=== PATIENT | female | born 1990 | race American Indian/Alaskan Native ===

== ENCOUNTER 2017-05-14 17:00 | Inpatient (IN) | payer OTHER ==
[2017-05-15 08:21] VITALS: BMI 26.7
[2017-05-15] MEDS: Lactated Ringer's 1,000 ML IV SCH ×2 (08:45→09:52)
[2017-05-15 09:16] LABS: BASO % 0.3 % (0.0-2.0); EOS % 0.4 % (0.0-4.0); HEMATOCRIT 29.4 % (34.0-47.0); LYMPH # 1.4 K/uL (1.0-4.3); LYMPH % 16.6 % (20.0-40.0); MEAN CELL VOLUME 83.1 fl (81.0-99.0); MEAN CORPUSCULAR HEMOGLOBIN 26.9 pg (27.0-31.0); MEAN CORPUSCULAR HGB CONC 32.4 g/dL (33.0-37.0); MEAN PLATELET VOLUME 6.7 fl (7.2-11.7); MONO # 0.7 K/uL (0.0-0.8); MONO % 8.2 % (0.0-10.0); NEUT # 6.3 K/uL (1.8-7.0); NEUT % 74.5 % (50.0-75.0); RED CELL DISTRIBUTION WIDTH 14.9 % (11.5-14.5); WHITE BLOOD COUNT 8.5 K/uL (4.8-10.8)
[2017-05-15] MEDS ORDERED: Lactated Ringer's 1,000 ML IV SCH (10:00)
[2017-05-15] MEDS ORDERED: ceFAZolin 1 GM in Sodium Chloride 0.9% 100 ML IVPB ONE (10:00)
[2017-05-15] MEDS ORDERED: Oxytocin 30 units/LR 500ML 30 U/500 ML BAG IV ONE ×2 (10:45→11:35)
--- NOTE | 2017-05-15 10:50 | OBHP ---
Datetime: 05/15/2017 10:48 IP Adm Impression: Term, intrauterine ; No Active Labor; Intact Membranes IP Admit Plan: Initiate Section protocol Admit Comment, IP Provider: IUP at 38+weeks previous C/S x 1 declined sent by [facility] for C /S. No CTX; no VB; +FM PMH: denies PSH: C/S NKA PSoHx: denies smoking ETOH drugs POBGYNH: C/S x 1 fully dilated ; elevated BP A: IUP at 38+; previous C/S x 1/declined ; polyhydramnios PLAN: Admit to L_D Prep for C/S Informed consent obtained Pelvic Type - PN: Adequate Extremities - PN: Normal Abdomen - PN: Normal Back - PN: Normal Breast - PN: Not Done Lungs - PN: Normal Heart - PN: Normal Thyroid - PN: Normal Neurologic - PN: Normal HEENT - PN: Normal General - PN: Normal FHR - Baseline A Provider: 120 Membranes, Provider: Intact Pool Provider: Negative IP Hx Assessment: The History has been Reviewed and is Current EGA AdmitDate IP: 38.2 IP Chief Complaint: Scheduled Section NICHD Variability Prov Fetus A: Moderate 6-25bpm NICHD Accel Fetus A IP Provider: [id number] NICHD Decel Fetus A IP Provider: None Genitourinary Exam: Normal DTRs - PN: Normal Datetime: 05/15/2017 10:32 Presentation-Admit: Vertex Comments, ACOG Physical Exam: ROS: HEENT: no CHOWDARY; no visual dist RESP: no SOB/cough CV: No CP/no palpitatoins GI: no N/V/D : no F/U/D MS: No joint pain FHR Category Provider Fetus A: Category I
[2017-05-15] MEDS ORDERED: Atropine 0.4 mg/ml Inj (1 mL) ONE (11:03)
--- NOTE | 2017-05-15 12:17 | OBDS ---
DELIVERY PERSONNEL Delivery Doctor: Charbel Contreras DO Real Estate Acquisition Analyst: Nidhi Anesthesiologist: Dr. Cameron MATERNAL INFORMATION Delivery Anesthesia: Spinal Medications in Delivery: Ancef 1 gm/Pitocin 30 units in 500 mls Estimated Blood Loss (ml): 800 Placenta Cultured: No Maternal Complications: None Provider Comments: Pre Op Dx: IUP at 38+w Previous C/S x 1 declines polyhydramnios PostOp Dx: same Procedure: Repeat LTCS via previous surgical scar Surgeon: Dr Contreras Asst: Dr Chasidy Michel Anesth: Dr Cameron Anesth: spinal Findings: Live male delivered from [facility] pres one loose nuchal cord reduced clear AF Placenta delivreed intact manually Ovaries and tubes WNL grossly She remained stable All equipment, sponges and needles accounted for EBL 800cc LABOR SUMMARY EDC: 05/27/2017 00:00 No. Babies in Womb: 1 Attempted: No Labor Anesthesia: Epidural LABOR INFORMATION Reason for Induction: Not Applicable Group B Beta Strep: Negative Antibiotics # of Doses: 1 Antibiotics Time of Last Dose: 1105 Steroids Given: None Reason Steroids Not Administered: Not Applicable MEMBRANES Membranes Rupture Method: Artificial Rupture of Membranes: 05/15/2017 11:34 Length of Rupture (hrs): 0.00 Amniotic Fluid Color: Clear Amniotic Fluid Amount: Small Amniotic Fluid Odor: Normal STAGES OF LABOR Stage 3 hrs: 0 Stage 3 min: 1 CSECTION DELIVERY Primary Indication: Other Other Primary Indication: Repeat Other Secondary Indication: Polyhydramnios CSection Urgency: Non Elective CSection Incidence: Repeat Labor: No Labor Elective: Nonelective Uterine Closure: Single-layer closure BABY A INFORMATION Infant Delivery Date/Time: 05/15/2017 11:34 Born in Route : No : N/A Forceps: N/A Vacuum Extraction: N/A Shoulder Dystocia : No SHOULDER DYSTOCIA BABY A Delivery Date/Time: 05/15/2017 11:34 PRESENTATION/POSITION BABY A Presentation: Cephalic Cephalic Presentation: Vertex Breech Presentation: N/A PLACENTA INFORMATION BABY A Placenta Delivery Time : 05/15/2017 11:35 Placenta Method of Delivery: Manual Removal Placenta Status: Delivered SCORES BABY A Heart Rate 1 min: >100 bpm Resp Effort 1 min: Good Cry Reflex Irritability 1 min: Cough or Sneeze or Pulls Away Muscle Tone 1 min: Active Motion Color 1 min: Body [place], Extremities Blue Resuscitation Effort 1 min: N/A SCORE 1 MIN: 9 Heart Rate 5 min: >100 bpm Resp Effort 5 min: Good Cry Reflex Irritability 5 min: Cough or Sneeze or Pulls Away Muscle Tone 5 min: Active Motion Color 5 min: Body [place], Extremities Blue Resuscitation Effort 5 min: N/A SCORE 5 MIN: 9 INFORMATION BABY A Gestational Age at Delivery: 38.2 Gestational Status: Term Outcome : Liveborn Condition : Stable Infant Sex: Male IDENTIFICATION/MEDS BABY A ID Band Number: [id number] ID Band Location: Left Leg; Left Arm WEIGHT/LENGTH BABY A Birthweight (gms): 3610 Infant Weight (lb): 7 Infant Weight (oz): 15 CORD INFORMATION BABY A No. Cord Vessels: 3 Nuchal Cord : Around Neck x1, Loose Nuchal Cord Other: N/A True Knot: N/A Cord pH Baby Arterial: N/A Infant Cord pH Baby Venous: N/A Cord Blood Taken: Yes Banking/Donate Info: N/A Suction: Mouth; Nose ASSESSMENT BABY A Complications: None Physical Findings at Delivery: Within Normal Limits Infant Respirations: Appears Normal Machine Binding Folder/ALS Called : No Infant Care By: Francis Transferred To: [facility]
[2017-05-15] MEDS: Oxycodone/Acetaminophen 5/325 mg Tab PO PRN ×2 (15:41→20:35)
[2017-05-15] MEDS ORDERED: Oxycodone/Acetaminophen 5/325 mg Tab PO PRN (16:39)
[2017-05-15] MEDS: Simethicone 80 mg Chewtab PO SCH ×2 (16:45→23:27)
[2017-05-16] MEDS: Oxycodone/Acetaminophen 5/325 mg Tab PO PRN ×4 (00:30→19:55)
[2017-05-16] MEDS: Simethicone 80 mg Chewtab PO SCH ×4 (07:25→21:26)
[2017-05-16 07:52] LABS: HEMATOCRIT 27.3 % (34.0-47.0); MEAN CELL VOLUME 82.7 fl (81.0-99.0); MEAN CORPUSCULAR HEMOGLOBIN 27.2 pg (27.0-31.0); MEAN CORPUSCULAR HGB CONC 32.9 g/dL (33.0-37.0); RED CELL DISTRIBUTION WIDTH 15.1 % (11.5-14.5); WHITE BLOOD COUNT 12.2 K/uL (4.8-10.8)
--- NOTE | 2017-05-16 11:40 | OBPPN ---
Datetime: 05/16/2017 11:36 PP Pain Prov: Within normal limits PP Nausea Prov: Denies PP Flatus Prov: Yes PP Breasts Prov: Normal PP Heart Prov: Normal PP Lungs Prov: Normal PP Abdomen/Uterus Prov: Normal PP Lochia Prov: Normal PP Vulva/Perineum Prov: Normal PP CVA Tenderness Prov: Normal PP Extremities Prov: Normal PP Comments Phys Exam Prov: Fundus firm under umbilicus Incision clean/dry/intact PP Impression Prov: Normal progression PP Plan Prov: Continue present management PP Progress Note Prov: Patient denies CP, noSOB, no N/V, tolerating PO diet, ambulating/voiding well , mild lochia, abominal pain tolerable with meds, +flatus A/P POD #1 1. Continue reg diet 2. Percocet/motrin prn pain 3. Encourage ambulation/ 4. Colace/dulcolax prn constipation IP PP Procedures: None Vital Signs Provider PP: Reviewed
[2017-05-17] MEDS: Simethicone 80 mg Chewtab PO SCH ×4 (04:32→21:36)
--- NOTE | 2017-05-17 09:19 | OBPPN ---
Datetime: 05/17/2017 09:15 PP Pain Prov: Within normal limits PP Nausea Prov: Denies PP Flatus Prov: Yes PP BM Prov: No PP Abdomen/Uterus Prov: Normal PP Lochia Prov: Normal PP Extremities Prov: Normal PP C/S Incision Prov: Normal PP Progress Prov: Normal PP Comments Phys Exam Prov: Incision intact w/ steri strips PP Impression Prov: Normal progression PP Plan Prov: Continue present management PP Progress Note Prov: POD 2 s/p Repeat LTCS, doing welk, breast and bottle feeding Continue current management Vital Signs Provider PP: Reviewed
[2017-05-18] MEDS: Simethicone 80 mg Chewtab PO SCH ×2 (06:09→12:42)
--- NOTE | 2017-05-18 10:10 | OBDCSUM ---
Datetime: 05/18/2017 10:09 Discharged to, Provider: Home Follow up at, Provider: OB Disch Instr Activity: Normal activity Disch Instr Diet: Regular Discharge Instructions, Provider: Routine instructions given Discharge Diagnosis, Provider: Term Delivered Discharge Time: 05/18/2017 10:09 Follow up in weeks, Provider: 1 wk, then 6 wks Disch Referrals: None Contraception discussed, Prov: Yes
--- NOTE | 2017-05-18 10:10 | OBPPN ---
Datetime: 05/18/2017 10:08 PP Pain Prov: Within normal limits PP Nausea Prov: Denies PP Flatus Prov: Yes PP BM Prov: Yes PP Breasts Prov: Normal PP Heart Prov: Normal PP Lungs Prov: Normal PP Abdomen/Uterus Prov: Normal PP Lochia Prov: Normal PP Vulva/Perineum Prov: Normal PP CVA Tenderness Prov: Normal PP Extremities Prov: Normal PP Comments Phys Exam Prov: Fundus firm Incision clean/dry/intact PP Impression Prov: Normal progression PP Plan Prov: Continue present management PP Progress Note Prov: Patient denies CP, no SOB, no N/V, tolerating PO diet, ambulating/voiding wel l, mild lochia, abdominal pain tolerable with meds, +flatus, +BM A/P POD #3 1. Discharge patient home 2. Discharge instructions reviewed IP PP Procedures: None Vital Signs Provider PP: Reviewed; Within Normal Limits
[2017-05-18 17:26] VITALS: BP 104/65; PULSE 64; RESP 18; TEMP 97.8; O2SAT 99
--- NOTE | 2017-05-21 01:48 | OP ---
PROCEDURE DATE: 05/15/2017 PREOPERATIVE DIAGNOSES: Intrauterine at 38 plus weeks' gestation, 2 previous sections x1, declining vaginal after section, and polyhydramnios. POSTOPERATIVE DIAGNOSES: Intrauterine at 38 plus weeks' gestation, 2 previous sections x1, declining vaginal after section, and polyhydramnios. PROCEDURE: Repeat low transverse section via previous surgical scar. SURGEON: Dr. Cale Contreras. INNOVATIONS PARAPROFESSIONAL: Dr. River Michel (Dr. River Michel is a board certified REVIVAL CLERK physician, who have to available to assist on this case. No residents available. He was present from skin incision to skin closure. He assisted in the delivery of the . His presence was vital and necessary for the procedure). ANESTHESIOLOGIST: Dr. Cameron. ANESTHESIA: Spinal. OPERATIVE FINDINGS: Live male delivered from cephalic presentation, one loose nuchal cord noted, and reduced clear amniotic fluid was noted, placenta was delivered and intact manually. Ovaries and fallopian tubes were within normal limits grossly. She remained hemodynamically stable and brought to the recovery room in stable condition. All equipments, sponge, and needles accounted for. DESCRIPTION OF PROCEDURE: The patient was brought to the operating room. Compression boots were placed on both lower extremities. She was given spinal anesthesia by Dr. Cameron and placed in a supine position. A Gardner catheter was placed and draining clear urine in and left in place. She was draped and prepped in the usual sterile manner. Once adequate anesthesia was obtained, an incision was made around this previous surgical scar and surgical scar was removed using a scalpel. Incision was taken down to underlying fascia using electrocautery. Fascia was nicked in the midline and extended bilaterally using electrocautery. Inferior aspect of the fascia was grasped using 2 Lin clamps and tented up and the rectus muscle was both bluntly and sharply dissected using electrocautery. The same was done with the superior aspect of the fascia. In the midline superiorly, the rectus muscle was grasped using 2 Allis clamps tented up. The midline was incised using a scalpel, able to identify the peritoneum and tenting this up using 2 Kristi clamps, and this was incised using Metzenbaum scissors and the incision was then extended superiorly and inferiorly with direct visualization of the bladder and intestines. Bladder blade was then inserted. A Bladder flap was created by incising peritoneum on the uterus above the bladder line and then extending bilaterally using Metzenbaum scissors, a bladder flap was created digitally. Bladder blade was then inserted behind the bladder flap. A low transverse incision was made using a scalpel. Upon entering the uterus, clear amniotic fluid was noted, incision was then extended bilaterally using Band-Aid scissors. The was then delivered, first the head was delivered as atraumatically as possible with bulb suction nasopharyngeally. One loose nuchal cord was reduced. Remainder of the infant was then delivered as atraumatically as possible. was crying spontaneously. Cord was clamped and cut and the infant was handed to the assembler dc field yoke in attendance. The placenta was delivered intact manually. Cleared the debris and clots. Good contraction of the uterus noted. 0 Vicryl suture was used to close the first layer of the uterus in an interlocking fashion. Good hemostasis was assured. Ovaries and tubes appeared to be within normal limits grossly upon inspection copious irrigation was done in the posterior cul-de-sac as well as paracolic gutters. Uterus was placed back into peritoneal cavity. Hemostasis was assured. Thereafter, 0 Vicryl suture was used to close the peritoneum in a running fashion. 0 Vicryl suture was used to approximate the rectus muscle x3. Good hemostasis is being assured. 0 Vicryl suture was used to approximate the fascia layer in a running fashion. Irrigation was performed. Hemostasis using electrocautery was done in subcuticular layer. 2-0 plain suture was then used to approximate the subcuticular layer x3, 3-0 Vicryl suture was used to approximate the skin. Dermabond, Steri-Strips and pressure bandage was applied. She tolerated the procedure well and was transferred to the recovery room in stable condition. All equipments, sponges, and needles accounted for. Cale Contreras DO
== END 2017-05-18 13:10 | disposition home or self-care (01) | DRG 765 ==
LOC: H.L&D 05-15 08:22 → H.OB/GYN 05-15 14:10
PROVIDERS: ADMIT Obstetrics & Gynecology; ATTEND Obstetrics & Gynecology
PROC: 10D00Z1 Extraction of Products of Conception, Low, Open Approach (ICD-10-PCS; principal; 2017-05-15)
PROC: 4A1HXCZ Monitoring of Products of Conception, Cardiac Rate, External Approach (ICD-10-PCS; 2017-05-15)
DX: O34.211 Maternal care for low transverse scar from previous cesarean delivery (principal); O40.3XX0 Polyhydramnios, third trimester, not applicable or unspecified; N85.8 Other specified noninflammatory disorders of uterus; Z37.0 Single live birth; Z3A.38 38 weeks gestation of pregnancy; O69.81X0 Labor and delivery complicated by cord around neck, without compression, not applicable or unspecified